=== PATIENT | male | born 1975 | race Two or more races ===

== ENCOUNTER 2018-05-12 15:17 | Emergency (ER) | payer MEDICAID ==
--- NOTE | 2018-05-12 15:41 | EDPHY ---
General Time Seen by Provider: 05/12/18 15:30 Narrative: CHIEF COMPLAINT: Chest pain, felt a pop HISTORY OF PRESENT ILLNESS: Patient presents by EMS with complaints of left-sided chest pain. He states that he was lifting 2 boxes of beer just prior to arrival when he "heard and felt a popping sensation on the left side of my chest." He points to the left sternocostal articulations of ribs 2,3 and 4. He was a very sharp sudden onset of pain that radiates around to his back at the same level. It is now much less severe without intervention. Was rated as moderate to severe at the time. No mild. He has no shortness of breath. The pain is minimal at rest. Worse with inspiration or with palpation of the area. He has no exertional component. No shortness of breath. No headache. No neck pain. No other associated complaints or modifying factors. He reports this is a work related injury. REVIEW OF SYSTEMS: 10 systems were reviewed and negative with the exception of the elements mentioned in the history of present illness. PCP: None SPECIALISTS: None PAST MEDICAL HISTORY: Hypertension without medication PAST SURGICAL HISTORY: Orthopedic surgeries SOCIAL HISTORY: Denies smoking tobacco or alcohol use. FAMILY HISTORY: Noncontributory EXAMINATION: Vitals: Triage VS reviewed General Appearance: Alert, no distress. Well appearing. Head: normocephalic, atraumatic Eyes: Pupils equal and round, no conjunctival pallor or injection Neck: Normal inspection, supple, non-tender. No crepitus or deformity. Respiratory: Lungs are clear to auscultation. No wheezing rhonchi or crackles. Tenderness palpation on the left upper ribs anteriorly including ribs 2 3 and 4. No sternal tenderness. Cardiovascular: Regular rate and rhythm. No murmur. Gastrointestinal: Abdomen is soft and nontender Back: non-tender, no bony abnormalities Neurological: A&O, nonfocal, normal gait Skin: Warm and dry, no rash Extremities: Nontender, no pedal edema Psychiatric: Mood and affect normal DIFFERENTIAL DIAGNOSES: Including but not limited to rib fracture, rib sprain, rib subluxation, rib dislocation, PE, pulmonary contusion, muscular strain MDM: 3:40 p.m. Acute left-sided chest pain is completely reproducible and associated with a popping sound and sensation just prior to arrival. His pain is significantly improved. It is completely reproducible with palpation of the area. No exertional pain. Vital signs are within normal limits. I have ordered chest x- ray. He is in no acute distress. 4:30 p.m. X-ray as read by me, without radiologist. Reveals no acute fracture dislocation. No pneumothorax. Patient re-evaluated. He continues to feel well. This without any intervention. He states that he would like to go home. I do feel this is reasonable. I do not feel he warrants a CT scan of the chest at this time. This is a completely reproducible pain with very low mechanism. We discussed warm compresses, heating pads, anti-inflammatories and rest. We discussed follow up with worker's compensation [facility]. We discussed ED precautions for any worsening pain, exertional pain, diaphoresis, shortness of breath. He is comfortable this plan. He would like to go home he is discharged home stable condition. SUPERVISION: This patient was independently evaluated without direct involvement of or examination by the attending physician. CONSULTATION: None - Diagnostics Imaging Results: Imaging Impressions Chest X-Ray 05/12/18 15:41 Impression: 1. No rib fracture or explanation for pain. 2. Minimal airways disease. No pneumothorax or effusion. - History Smoking Status: Never smoked - Objective Vital Signs: Initial Vital Signs Temperature (C) 97.9 F 05/12/18 15:23 Heart Rate 94 05/12/18 15:23 Respiratory Rate 16 05/12/18 15:23 Blood Pressure 152/104 H 05/12/18 15:23 O2 Sat (%) 94 05/12/18 15:23 O2 Delivery Mode Room Air Allergies/Adverse Reactions: hydrocodone Allergy (Verified 05/12/18 15:23) Home Medications: Medication Instructions Recorded NK [No Known Home Meds] 05/12/18 Departure - Departure Disposition: Home, Routine, Self-Care Clinical Impression: Chest wall pain Condition: Good Instructions: Chest Wall Pain (ED) Additional Instructions: 1. Heating pad to the affected area as needed. 20 min on, 20 min off 2. Ibuprofen 600 mg every 6-8 hours as needed for discomfort 3. Follow up with worker's compensation [facility] 4. Strict ED precautions for any return of your pain, difficulty breathing, shortness of breath, fever, exertional chest pain Referrals: Patient,NotPresent [Primary Care Provider] - As per Instructions Physician,Emergency Dept [Medical Doctor] - As per Instructions Stand Alone Forms: Work Comp Follow Up
[2018-05-12 17:09] VITALS: BP 142/104
== END 2018-05-12 17:08 | disposition home or self-care (01) ==
DX: R07.89 Other chest pain (principal); I10 Essential (primary) hypertension; X50.0XXA Overexertion from strenuous movement or load, initial encounter